=== PATIENT | female | born 1990 | race Caucasian/White ===

== ENCOUNTER → 2022-03-20 | Outpatient (CLI) | payer BC | END | disposition home or self-care (01) | LOC: LABWHC1 14:26 | PROVIDERS: ATTEND Obstetrics & Gynecology Obstetrics | DX: N92.5 Other specified irregular menstruation (principal) | CPT/HCPCS: 36415; 84144; 84702 ==

== ENCOUNTER → 2022-03-22 | Outpatient (CLI) | payer BC | END | disposition home or self-care (01) | LOC: LABWHC1 08:37 | PROVIDERS: ATTEND Obstetrics & Gynecology Obstetrics | DX: N92.5 Other specified irregular menstruation (principal) | CPT/HCPCS: 36415; 84702 ==

== ENCOUNTER 2022-12-04 10:52 | Inpatient (IN) | payer BC ==
[2022-12-11] MEDS ORDERED: TERBUTALINE 1 MG/ML VIAL SQ PRN (06:32)
[2022-12-11] MEDS ORDERED: LIDOCAINE 0.5% (PF) 5 MG/ML (50 ML SDV) SQ PRN (06:32)
[2022-12-11] MEDS: LACTATED RINGERS 1,000 ML IV SCH ×4 (06:41→16:40)
[2022-12-11] MEDS: OXYTOCIN 30 UNITS/500 ML NS 30 UNIT in SALINE 1 500ML.BAG IV SCH (06:45)
[2022-12-11] MEDS ORDERED: OXYTOCIN 30 UNITS/500 ML NS 30 UNIT in SALINE 1 500ML.BAG IV SCH ×2 (07:00→23:36)
[2022-12-11 07:03] LABS: Basophils % (A) 0 %; Eosinophils # (A) 0.2 k/uL (0-0.7); Eosinophils % (A) 2 %; HCT 39.1 % (34.0-46.0); HGB 13.8 gm/dL (11.4-16.0); Lymphocytes # (A) 2.2 k/uL (1.0-4.8); Lymphocytes % (A) 23 %; MCH 30.1 pg (25.0-35.0); MCHC 35.2 g/dL (31.0-37.0); MCV 85.5 fL (80.0-100.0); Mean Platelet Volume 10.3; Monocytes # (A) 0.4 k/uL (0-1.0); Monocytes % (A) 4 %; Neutrophils # (A) 6.6 k/uL (1.3-7.7); Neutrophils % (A) 69 %; Platelet Count 175 k/uL (150-450); RBC 4.58 m/uL (3.80-5.40); RDW 12.9 % (11.5-15.5); WBC 9.6 k/uL (3.8-10.6)
[2022-12-11 07:24] LABS: Glucose,Whole Blood 103 mg/dL (70-110)
[2022-12-11] MEDS ORDERED: ROPIVACAINE 5 MG/ML 20 ML AMPULE ONE (15:52)
[2022-12-11] MEDS ORDERED: SODIUM CHLORIDE 0.9% 100 ML BAG ONE (15:52)
[2022-12-11] MEDS ORDERED: fentaNYL (PF) 50 MCG/ML 5 ML AMP ONE (15:52)
[2022-12-11] MEDS ORDERED: CITRIC ACID-SODIUM CITRATE 15 ML CUP PO ONE (22:08)
--- NOTE | 2022-12-11 22:12 | P.HPOB ---
History of Present Illness H&P Date: 12/11/22 Chief Complaint: IUP at 41-0/7 weeks, gestational diabetes This is a 32-year-old 1 para 0 at 41-0/7 weeks that presents to labor and delivery for induction of labor secondary to postdates. Patient has had routine care which was complicated by diagnosis of gestational diabetes which has been diet controlled. Patient has refused induction until this time. Patient's blood sugars have been reasonably well controlled. This morning patient does note good movement, she declines contractions vaginal bleeding or loss of fluid. Review of Systems Constitutional: Denies chills, Denies fatigue, Denies fever Ears, nose, mouth and throat: Denies headache Cardiovascular: Reports leg edema Respiratory: Denies dyspnea Gastrointestinal: Denies constipation, Denies diarrhea, Denies nausea, Denies vomiting Genitourinary: Reports Past Medical History Additional Past Medical History / Comment(s): GDM History of Any Multi-Drug Resistant Organisms: None Reported Past Surgical History: No Surgical Hx Reported Past Anesthesia/Blood Transfusion Reactions: No Reported Reaction Smoking Status: Never smoker Medications and Allergies Home Medications Medication Instructions Recorded Confirmed Type Cetirizine HCl [Zyrtec] 10 mg PO DAILY 12/11/22 12/11/22 History Zdd-Nvhw-Bhfps Acid 1 cap PO DAILY 12/11/22 12/11/22 History [-U Capsule (formulary)] Allergies Allergy/AdvReac Type Severity Reaction Status Date / Time No Known Allergies Allergy Verified 12/11/22 06:21 Exam Osteopathic Statement: *. No significant issues noted on an osteopathic structural exam other than those noted in the History and Physical/Consult. Vital Signs Temp Pulse Resp BP Pulse Ox 12/11/22 06:21 97.7 F 114 H 18 141/74 98 Intake and Output 12/10/22 12/11/22 12/11/22 22:59 06:59 14:59 Other: # Voids 1 Weight 87.543 kg Targeted physical exam is performed in this date and supervisor painting department a well-nourished well-developed female in no acute distress, breathing is nonlabored, heart has a regular rate and rhythm, abdomen is gravid and appropriate for gestational age, on cervical exam she is 1-2/50/-3 station amniotomy is performed and suspected meconium-stained fluid is appreciated heart tones are noted to be category 1 and she is toma irregularly Results Result Diagrams: 12/11/22 06:32 Assessment and Plan (1) Post-dates Current Visit: Yes Status: Acute Code(s): O48.0 - POST-TERM SNOMED Code(s): 71310738 (2) GDM (gestational diabetes mellitus), class A1 Current Visit: Yes Status: Acute Code(s): O24.410 - GESTATIONAL DIABETES MELLITUS IN , DIET CONTROLLED SNOMED Code(s): 01674572 Plan: 32-year-old 1 para 0 at 41-0/7 weeks presents for induction of labor secondary to postdates and gestational diabetes. Patient is admitted and Pitocin induction of labor is begun. Amniotomy is performed and suspected meconium-stained fluid is appreciated. We will continue to monitor fluid and notified pediatrics if necessary. Options for analgesia are discussed including Stadol, nitrous, epidural. Patient will consider. We'll continue current plan.
[2022-12-11] MEDS ORDERED: CHLOROPROCAINE 3% 30 MG/ML 20 ML VIAL ONE (22:40)
[2022-12-11] MEDS ORDERED: NALBUPHINE 10 MG/ML (1 ML AMP) ONE (22:40)
[2022-12-11] MEDS ORDERED: OXYTOCIN 30 UNITS/500 ML NS BAG IV ONE (22:40)
[2022-12-11] MEDS ORDERED: ONDANSETRON 4 MG/2 ML VIAL ONE (22:40)
[2022-12-11] MEDS ORDERED: MORPHINE SULFATE (PF) 0.3 MG/0.3 ML SYR ONE (22:40)
--- NOTE | 2022-12-11 23:31 | P.OP ---
Date of Procedure: 12/11/22 Preoperative Diagnosis: IUP at 41-0/7 weeks, gestational diabetes, arrest of first stage of labor, cervical swelling Postoperative Diagnosis: Same Procedure(s) Performed: Primary low transverse section Anesthesia: epidural Surgeon: Kendra Humphries [employer] Supervisor #1: Maura Medina Estimated Blood Loss (ml): 680 IV fluids (ml): 700 Urine output (ml): 200 Pathology: other (Placenta) Condition: stable Disposition: observation Indications for Procedure: 32-year-old at 41-0/7 weeks that presented to labor and delivery for induction of labor secondary to postdates and known diagnosis of gestational diabetes. Patient was admitted and Pitocin induction of labor was begun. Patient underwent amniotomy and thin meconium-stained fluid was appreciated. Patient made slow progress through the day. Patient was noted to be 6 cm approximately 3-4 hours ago, on current exam cervical swelling was appreciated anterior lip greater than the rest of the cervix but circumferential swelling was noted. heart tones are noted to be category 1, she is toma every 2-3 minutes. Discussion with patient and patient's regarding cervical exam cervical swelling and suspected malposition. Multiple questions were answered. Patient states understanding and wishes to proceed. Operative Findings: Normal uterus tubes and ovaries were appreciated, viable male infant delivered at 2256, weight of 8 lbs. 0 oz. Apgars of 9 and 9 at one and 5 minutes respectively. Description of Procedure: The patient was prepped and draped in the usual fashion after epidural anesthesia was found be adequate by the anesthesia department.. A Pfannenstiel incision was made and extended of the abdominal cavity without difficulty. The bladder peritoneum was elevated and incised and reflected distally. A 2 cm incision was made in the transverse plane of the lower uterine segment to enter the uterus at which time clear fluid was noted. The incision was extended in both directions using the bandage scissors. The head was encountered within the field and delivered up and through the incision where the nose and mouth were thoroughly suctioned. Remainder of the infant was delivered onto the surgical field where the cord was doubly clamped, cut, and the was passed for resuscitative measures with weight and Apgars as noted above. A segment of cord was then doubly clamped, cut, and set aside should cord gases become necessary. The placenta was delivered manually, intact, and was grossly normal with a grossly normal three-vessel cord. The uterus was exteriorized and the interior cavity of the uterus swept of any remaining placental and membranous fragments with a laparotomy sponge. The margins of the incision were grasped with Allis clamps and the incision closed in 2 layers. First layer was a running locking layer of 0 Vicryl from margin to margin followed by a second layer of imbricating 0 Vicryl from margin to margin. Small amount of bleeding was appreciated on the left uterine incision therefore a fuknng-uq-puupt suture was used to obtain hemostasis. Surgicel powder was placed along the hysterotomy incision for hemostasis. Any small points of bleeding were then made hemostatic with the Bovie. Once hemostasis was achieved, the posterior cul-de-sac was suctioned with a guard and the uterine and ovarian findings are as noted above. The uterus was replaced within the abdominal cavity and the gutters swept of any remaining blood fluid or clot. The incision was again reexamined and hemostasis was noted to be excellent. Any small point of bleeding were made hemostatic with the Bovie. Once hemostasis was achieved the parietal peritoneum was loosely reapproximated. The layer of muscles were examined and made hemostatic with the Bovie. Attention was then turned to the fascia which was closed with 2 running stitches of 0 Vicryl proceeding from the lateral margins to the midpoint. The subcutaneous tissues were irrigated, made hemostatic with the Bovie, and reapproximated with a running stitch of 30 Vicryl. The skin was reapproximated with 4-0 Vicryl in a subcuticular fashion. Estimated blood loss for the case was approximately 680 mL. All sponge instrument and needle counts are correct. There were no complications. The patient tolerated the procedure well and proceeded to the recovery room in stable condition. Both mother and infant are resting comfortably in recovery.
[2022-12-11] MEDS ORDERED: ZOLPIDEM 5 MG TAB PO PRN (23:36)
[2022-12-11] MEDS ORDERED: diphenhydrAMINE 25 MG CAP PO PRN (23:36)
[2022-12-11] MEDS ORDERED: diphenhydrAMINE 50 MG/ML 1 ML VIAL IVP PRN ×2 (23:36)
[2022-12-11] MEDS ORDERED: NALOXONE 0.4 MG/ML 1 ML VIAL IV PRN (23:36)
[2022-12-11] MEDS ORDERED: ONDANSETRON 4 MG/2 ML VIAL IVP PRN (23:36)
[2022-12-11] MEDS ORDERED: diphenhydrAMINE 50 MG CAP PO PRN (23:36)
[2022-12-11] MEDS ORDERED: METOCLOPRAMIDE 5 MG/ML 2 ML VIAL IVP PRN (23:36)
[2022-12-11] MEDS: ACETAMINOPHEN IV (For NPO) 1,000 MG in EMPTY BAG 1 BAG IVPB SCH (23:40)
[2022-12-12] MEDS: OXYTOCIN 30 UNITS/500 ML NS 30 UNIT in SALINE 1 500ML.BAG IV SCH (02:01)
[2022-12-12] MEDS: LACTATED RINGERS 1,000 ML IV SCH ×3 (02:02→06:50)
[2022-12-12] MEDS: ACETAMINOPHEN TAB 500 MG TAB PO SCH ×4 (02:15→22:06)
[2022-12-12] MEDS: IBUPROFEN 600 MG TAB PO SCH ×3 (04:17→17:30)
[2022-12-12] MEDS ORDERED: IBUPROFEN IV 800 MG in SODIUM CHLORIDE 0.9% 250 ML IV SCH (06:00)
[2022-12-12 06:22] LABS: Basophils % (A) 0 %; Eosinophils % (A) 0 %; HCT 32.4 % (34.0-46.0); Lymphocytes # (A) 1.4 k/uL (1.0-4.8); Lymphocytes % (A) 11 %; MCH 29.8 pg (25.0-35.0); MCV 87.7 fL (80.0-100.0); Mean Platelet Volume 10.8; Monocytes # (A) 0.7 k/uL (0-1.0); Monocytes % (A) 5 %; Neutrophils # (A) 10.3 k/uL (1.3-7.7); Neutrophils % (A) 82 %; Platelet Count 140 k/uL (150-450); RBC 3.69 m/uL (3.80-5.40); RDW 13.2 % (11.5-15.5); WBC 12.6 k/uL (3.8-10.6)
--- NOTE | 2022-12-12 07:06 | P.PN ---
Progress Note - Text Progress Note Date: 12/12/22 (526) Anesthesia Postop day 1 Subjective: Status Post section with Duramorph. Patient seen and examined. Doing well without complaint. VAS 0. No nausea vomiting or pruritus. Denies fever. Gross lower extremity strength intact. . Without apparent anesthetic complications. Objective: Vital signs reviewed Heart: Regular Rate Lungs: Good chest excursion Abdomen: Appears nondistended Assessment: Status post with Duramorph postop day 1 Plan: Continue current care with your medical management. Anticipated and the Duramorph around midnight tonight, you may see increased pain needs around this time.
[2022-12-12] MEDS: ACETAMINOPHEN IV (For NPO) 1,000 MG in EMPTY BAG 1 BAG IVPB SCH (08:06)
--- NOTE | 2022-12-12 08:50 | P.PNOBGPC ---
Subjective - Subjective Principal diagnosis: POD 1 LTCs Interval history: Patient is doing well . she states pain is well controlled, lochia is miimal. she is ambulating without difficulty. awaiting spontaneous void. she is breast feeding. Patient reports: Reports appetite normal, Reports pain well controlled, Reports ambulating normally : doing well, nursing well Objective - Vital Signs Latest vital signs: Vital Signs Temp Pulse Resp BP Pulse Ox 12/12/22 08:00 97.8 F 78 102/67 95 12/12/22 04:00 98.7 F 85 16 113/74 12/12/22 01:33 82 16 99/56 95 12/12/22 01:03 85 16 118/55 96 12/12/22 00:33 93 16 138/54 96 12/12/22 00:18 92 16 133/59 96 12/12/22 00:03 80 16 108/59 97 12/11/22 23:46 99 16 109/69 96 12/11/22 23:33 98.0 F 90 16 102/55 97 Intake and Output 12/11/22 12/12/22 12/12/22 22:59 06:59 14:59 Intake Total 738.533 Output Total 300 1625 1850 Balance -300 -886.467 -1850 Intake: IV 700 Intake, IV Titration 38.533 Amount Oxytocin 30 Units/500 ml 38.533 Ns 30 unit In Saline 1 500ml.bag @ Per Protocol IV [facility] Rx#:[id number] Output: Urine 775 181 4369 Uretheral (Joy) 50 Output, Quantitative 825 Blood Loss Other: # Voids 1 1 - Exam Extremities: Present: normal, edema Abdomen: Present: normal appearance, soft Incision: Present: normal, dry, intact Uterus: Present: normal, firm - Labs Labs: Abnormal Lab Results - Last 24 Hours (Table) 12/12/22 Range/Units 06:05 WBC 12.6 H (3.8-10.6) k/uL RBC 3.69 L (3.80-5.40) m/uL Hgb 11.0 L (11.4-16.0) gm/dL Hct 32.4 L (34.0-46.0) % Plt Count 140 L (150-450) k/uL Neutrophils # 10.3 H (1.3-7.7) k/uL Assessment and Plan (1) Post-dates Current Visit: Yes Status: Acute Code(s): O48.0 - POST-TERM SNOMED Code(s): 38118101 (2) GDM (gestational diabetes mellitus), class A1 Current Visit: Yes Status: Acute Code(s): O24.410 - GESTATIONAL DIABETES MELLITUS IN , DIET CONTROLLED SNOMED Code(s): 33164848 (3) Arrest of dilation, delivered, current hospitalization Current Visit: Yes Status: Acute Code(s): O62.1 - SECONDARY UTERINE INERTIA SNOMED Code(s): 29985148 (4) S/P section Current Visit: Yes Status: Acute Code(s): Z98.891 - HISTORY OF UTERINE SCAR FROM PREVIOUS SURGERY SNOMED Code(s): 734839189 Plan: Patient is doing well postoperatively. Will advance diet to regular for lunch, encourage ambulation await spontaneous void. continue current postoperative care.
[2022-12-12] MEDS: SENNOSIDES-DOCUSATE SODIUM 1 EACH TAB PO SCH ×2 (11:04→22:10)
[2022-12-12] MEDS: PRENATAL VIT-IRON-FOLIC ACID 1 EACH TABLET PO SCH (14:03)
[2022-12-13] MEDS: IBUPROFEN 600 MG TAB PO SCH ×3 (00:28→14:02)
[2022-12-13] MEDS: ACETAMINOPHEN TAB 500 MG TAB PO SCH ×2 (03:53→11:56)
[2022-12-13] MEDS: LACTATED RINGERS 1,000 ML IV SCH (06:39)
[2022-12-13 08:19] VITALS: BP 112/70; PULSE 84; RESP 18; TEMP 98
--- NOTE | 2022-12-13 08:37 | P.DS ---
Providers Date of admission: 12/11/22 06:14 Expected date of discharge: 12/13/22 Attending physician: Kendra Humphries Primary care physician: Stated None - Discharge Diagnosis(es) (1) Post-dates Current Visit: Yes Status: Acute (2) GDM (gestational diabetes mellitus), class A1 Current Visit: Yes Status: Acute (3) Arrest of dilation, delivered, current hospitalization Current Visit: Yes Status: Acute (4) S/P section Current Visit: Yes Status: Acute Hospital Course: This is a 32-year-old at 41-0/7 weeks that presents to labor and delivery for induction of labor secondary to postdates. Patient had been receiving routine care that was completed by diagnosis of gestational diabetes, diet-controlled. Patient was admitted and Pitocin induction of labor was begun per hospital protocol. Patient underwent amniotomy and thin meconium-stained fluid was appreciated. Patient made slow progress through labor but did eventually become uncomfortable and requested epidural placement. Epidural was placed without difficulty by the anesthesia department. Patient was noted to be 6 cm for multiple hours with cervical swelling. The anterior lip was noted to be significantly swollen. Exam was discussed with patient and patient's and after multiple questions were answered decision was made for primary low transverse section secondary to arrest of first stage of labor. Patient was taken back for a primary . For full details on the C- section please see the dictated operative report. Patient delivered a viable male infant at 2256, weight of 8 lbs. 0 oz., Apgars of 8 and 9 at one and 5 minutes respectively. Patient's postoperative course has been uneventful. On this postoperative day #2 she is ambulating and voiding without difficulty. She is tolerating a regular diet without nausea or vomiting. She states her pain is well-controlled. She denies concerns. She would like discharge home today. Patient Condition at Discharge: Good Plan - Discharge Summary New Discharge Prescriptions: No Action Ppt-Ehad-Qcitz Acid [-U Capsule (formulary)] 1 cap PO DAILY Cetirizine HCl [Zyrtec] 10 mg PO DAILY Discharge Medication List Cetirizine HCl [Zyrtec] 10 mg PO DAILY 12/11/22 [History] Pxe-Wgtx-Dtorh Acid [-U Capsule (formulary)] 1 cap PO DAILY 12/11/22 [History] Follow up Appointment(s)/Referral(s): Kendra Humphries DO [Doctor of Osteopathic Medicine] - 2 Weeks Patient Instructions/Handouts: (DC), (GEN) Activity/Diet/Wound Care/Special Instructions: postoperative FU appt in 2 weeks, elel-mjc-tefhhcr ibuprofen as needed for pain. Patient is counseled to keep her incision clean and dry. Nothing in the vagina for 6 total weeks. No intercourse or tub baths. Discharge Disposition: HOME SELF-CARE
[2022-12-13] MEDS: SENNOSIDES-DOCUSATE SODIUM 1 EACH TAB PO SCH (14:01)
[2022-12-13] MEDS: PRENATAL VIT-IRON-FOLIC ACID 1 EACH TABLET PO SCH (14:02)
== END 2022-12-13 14:35 | disposition home or self-care (01) | DRG 788 ==
LOC: 4FBP 12-11 06:14
PROVIDERS: ADMIT Obstetrics & Gynecology Obstetrics; ATTEND Obstetrics & Gynecology Obstetrics
PROC: 3E033VJ Introduction of Other Hormone into Peripheral Vein, Percutaneous Approach (ICD-10-PCS; 2022-12-11)
PROC: 10907ZC Drainage of Amniotic Fluid, Therapeutic from Products of Conception, Via Natural or Artificial Opening (ICD-10-PCS; 2022-12-11)
PROC: 10D00Z1 Extraction of Products of Conception, Low, Open Approach (ICD-10-PCS; principal; 2022-12-11 22:40)
DX: O48.0 Post-term pregnancy (principal); O24.429 Gestational diabetes mellitus in childbirth, unspecified control; O77.0 Labor and delivery complicated by meconium in amniotic fluid; O32.9XX0 Maternal care for malpresentation of fetus, unspecified, not applicable or unspecified; O62.0 Primary inadequate contractions; O62.1 Secondary uterine inertia; Z37.0 Single live birth; Z3A.41 41 weeks gestation of pregnancy; Z79.899 Other long term (current) drug therapy
CPT/HCPCS: 85025; 86850; 86900; 86901

== ENCOUNTER → 2024-12-03 | Outpatient (CLI) | payer OTHER ==
--- NOTE | 2024-12-03 13:02 | MM ---
Reason for Exam: Screening (asymptomatic). Baseline mammogram. Patient History: Menarche at age 11. First Full-Term at age 33. Late child-bearing (after 30). Hormonal Contraceptives, starting at age 15 for 12 years. Paternal aunt had breast cancer. Last menstrual period: 11/22/2024 Risk Values: Apoorva 5 year model risk: 0.4%. NCI Lifetime model risk: 13.9%. Prior Study Comparison: Patient's first Mammogram. No prior studies available for comparison. Tissue Density: The breasts are heterogeneously dense, which may obscure small masses. Findings: Analyzed By CAD. Right breast: Asymmetry right cc view middle depth medially 5.8 cm from the nipple. Left breast: Symmetry left breast inferior on MLO view posterior depth approximately 6.6 cm from the nipple. Overall Assessment: Incomplete: need additional imaging evaluation, BI-RAD 0 Management: Diagnostic Mammogram of both breasts. [facility] will attempt to contact patient to return for supplemental views and ultrasound if indicated. Patient should continue monthly self-breast exams. A clinical breast exam by your physician is recommended on an annual basis. This exam should not preclude additional follow-up of suspicious palpable abnormalities. Note on Apoorva scores and lifetime risk: 1. A Apoorva score greater than 3% is considered moderate risk. If this is the case, consider specialist referral to assess eligibility for a risk reducing agent. 2. If overall lifetime risk for the development of breast cancer is 20% or higher, the patient may qualify for future screening with alternating mammogram and breast MRI. [facility], , 12/03/2024 12:59 PM. Electronically signed and approved by: Kristian Zurita DO
== END | disposition home or self-care (01) ==
LOC: RADMAMWWP 11:30
PROVIDERS: ATTEND Family Medicine
DX: Z12.31 Encounter for screening mammogram for malignant neoplasm of breast (principal); R92.333 Mammographic heterogeneous density, bilateral breasts; Z80.3 Family history of malignant neoplasm of breast
CPT/HCPCS: 77067

== ENCOUNTER → 2024-12-16 | Outpatient (CLI) | payer OTHER ==
--- NOTE | 2024-12-16 15:13 | MM ---
Reason for Exam: Follow-up at short interval from prior study. Last screening mammogram was performed less than 1 month ago. Patient History: Menarche at age 11. First Full-Term at age 33. Late child-bearing (after 30). Hormonal Contraceptives, starting at age 15 for 12 years. Paternal aunt had breast cancer. Last menstrual period: 11/22/2024 Risk Values: Apoorva 5 year model risk: 0.4%. NCI Lifetime model risk: 13.9%. Prior Study Comparison: 12/03/2024 Bilateral MG screening mammo w CAD, [facility]. Tissue Density: The breasts are heterogeneously dense, which may obscure small masses. Findings: Analyzed By CAD. The medial asymmetric density on the right disperses on additional views compatible with superimposition shadow. No persisting abnormality is seen. The posterior asymmetric density on the left also disperses compatible with a benign etiology. No persisting abnormality is seen. Overall Assessment: Benign, BI-RAD 2 Management: Screening Mammogram of both breasts at age 39. unless there is an indication to start sooner. Results were given to the patient verbally at the time of exam. Patient should continue monthly self-breast exams. A clinical breast exam by your physician is recommended on an annual basis. This exam should not preclude additional follow-up of suspicious palpable abnormalities. Note on Apoorva scores and lifetime risk: 1. A Apoorva score greater than 3% is considered moderate risk. If this is the case, consider specialist referral to assess eligibility for a risk reducing agent. 2. If overall lifetime risk for the development of breast cancer is 20% or higher, the patient may qualify for future screening with alternating mammogram and breast MRI. [facility], , 12/16/2024 3:10 PM. Electronically signed and approved by: Alyce Vargas M.D. Radiologist
== END | disposition home or self-care (01) ==
LOC: RADMAMWWP 14:51
PROVIDERS: ATTEND Family Medicine
DX: R92.2 Inconclusive mammogram (principal); R92.333 Mammographic heterogeneous density, bilateral breasts; Z80.3 Family history of malignant neoplasm of breast
CPT/HCPCS: 77062; 77066